=== PATIENT | female | born 1965 | race Caucasian/White ===

== ENCOUNTER → 2017-01-17 | Outpatient (CLI) | payer OTHER ==
[~2017-01-17] MED LIST: FUROSEMIDE; IBUPROFEN 800800 MG PO; NEXIUM; NORCO 5-325 TA1 EACH PO; ZOCOR 10 MG TAB10 MG PO
== END ==
LOC: RAD 10:51
DX: Z12.31 Encounter for screening mammogram for malignant neoplasm of breast (principal)